=== PATIENT | male | born 1955 | race Two or more races ===

== ENCOUNTER 2023-04-21 17:25 | Inpatient (IN) | payer MEDICAID, OTHER ==
[~2023-04-21] VITALS: Ht 167.6 cm; Wt 78.0 kg
[2023-04-21] MEDS ORDERED: CLONIDINE HCL 0.2 MG TABLET PO ONE (17:30)
[2023-04-21] MEDS ORDERED: CLONIDINE HCL 0.1 MG TABLET ONE (18:12)
[2023-04-21] MEDS ORDERED: CLONIDINE HCL 0.1 MG TABLET PO ONE (18:15)
[2023-04-21 18:25] LABS: BASOPHILS # (AUTO) 0.1 K/UL (0.0-0.2); BASOPHILS % (AUTO) 0.5 % (0.0-2.0); HEMATOCRIT 25.9 % (36.7-47.1); HEMOGLOBIN 8.5 g/dL (12.5-16.3); LYMPHOCYTES # (AUTO) 0.8 K/uL (0.8-4.8); LYMPHOCYTES % (AUTO) 7.1 % (20.5-51.5); MEAN CORPUSCULAR HEMOGLOBIN 28.3 uug (23.8-33.4); MEAN CORPUSCULAR HGB CONC 33 g/dL (32.5-36.3); MEAN CORPUSCULAR VOLUME 86.5 fL (73.0-96.2); MONOCYTES # (AUTO) 1.1 K/uL (0.1-1.30); MONOCYTES % (AUTO) 9.3 % (0.0-11.0); NEUTROPHILS # (AUTO) 9.6 K/uL (1.8-8.9); NEUTROPHILS % (AUTO) 83.1 % (38.5-71.5); PLATELET COUNT (AUTO) 171 K/uL (152-348); RED BLOOD CELL COUNT(AUTO) 2.99 MIL/uL (4.06-5.63); RED CELL DISTRIBUTION WIDTH 15.8 % (12.1-16.2); WHITE BLOOD COUNT (AUTO) 11.6 K/uL (3.6-10.2)
[2023-04-21 18:35] LABS: DIFFERENTIAL COMMENT 1
[2023-04-21 18:43] LABS: CALCIUM 7.8 mg/dL (8.5-10.1); CREATININE 4.9 mg/dL (0.6-1.3); POTASSIUM 3.5 mmol/L (3.5-5.1)
[2023-04-21 18:51] LABS: ALBUMIN 2.4 g/dL (3.4-5.0); BILIRUBIN,DIRECT 0.1 mg/dL (0.0-0.2); BILIRUBIN,TOTAL 0.2 mg/dL (0.2-1.0); TOTAL PROTEIN, SERUM 6.1 g/dL (6.4-8.2)
[2023-04-21] MEDS ORDERED: DEXTROSE 5 %-0.45 % NACL 500 ML IV.SOLN IV ONE (19:00)
[2023-04-21] MEDS ORDERED: IV D5W-0.45% NS 1000 ML BAG IV ONE (19:00)
[2023-04-21] MEDS ORDERED: GENTAMICIN SULFATE OPHT DROP 5 ML BOTTLE OP ONE (20:00)
[2023-04-21] MEDS ORDERED: GENTAMICIN SULFATE OPHT DROP 5 ML BOTTLE ONE (20:29)
[2023-04-21] MEDS ORDERED: HYDR100T27 PO (20:36)
[2023-04-21] MEDS ORDERED: ASPI81TA31 PO (20:36)
[2023-04-21] MEDS ORDERED: GLIP5TAB13 PO (20:36)
[2023-04-21] MEDS ORDERED: FURO20TA4 PO (20:36)
[2023-04-21] MEDS ORDERED: SEVE800T8 PO (20:36)
[2023-04-21] MEDS ORDERED: CHOL2000 PO (20:36)
[2023-04-22] MEDS ORDERED: OCTREOTIDE ACETATE 50 MCG/1 ML ML SQ STA (00:04)
[2023-04-22] MEDS: BLOOD SUGAR DIAGNOSTIC 1 EACH STRIP VI SCH ×3 (00:05→17:59)
[2023-04-22] MEDS ORDERED: OCTREOTIDE ACETATE 100 MCG/1 MLVIAL ONE ×3 (00:08→20:28)
[2023-04-22] MEDS ORDERED: MAGNESIUM HYDROXIDE 30 ML LIQUID UDC PO PRN (00:15)
[2023-04-22] MEDS ORDERED: REMEDY ESSENTIAL ZINC PASTE 113 GM TP PRN (00:15)
[2023-04-22] MEDS ORDERED: ONDANSETRON 4 MG/2 ML VIAL IV PRN (00:15)
[2023-04-22] MEDS ORDERED: DEXTROSE 50% 50 ML DISP.SYRIN ONE (00:51)
[2023-04-22] MEDS ORDERED: DEXTROSE 50% 50 ML DISP.SYRIN IV ONE (01:00)
[2023-04-22] MEDS: IV 10% DEXTROSE 1,000 ML IV PRN ×2 (01:05→15:43)
[2023-04-22] MEDS: PANTOPRAZOLE SODIUM 40 MG TABLET.DR PO SCH (07:49)
[2023-04-22] MEDS ORDERED: hydrALAZINE HCL 50 MG TABLET ONE (13:09)
[2023-04-22 13:13] LABS: BASOPHILS # (AUTO) 0.2 K/UL (0.0-0.2); BASOPHILS % (AUTO) 2.7 % (0.0-2.0); EOSINOPHILS % (AUTO) 0.2 % (0.0-7.0); HEMATOCRIT 24.6 % (36.7-47.1); HEMOGLOBIN 8.1 g/dL (12.5-16.3); LYMPHOCYTES # (AUTO) 0.8 K/uL (0.8-4.8); LYMPHOCYTES % (AUTO) 9.5 % (20.5-51.5); MEAN CORPUSCULAR HEMOGLOBIN 28.3 uug (23.8-33.4); MEAN CORPUSCULAR HGB CONC 33 g/dL (32.5-36.3); MEAN CORPUSCULAR VOLUME 85.9 fL (73.0-96.2); MONOCYTES # (AUTO) 0.9 K/uL (0.1-1.30); NEUTROPHILS # (AUTO) 6.5 K/uL (1.8-8.9); NEUTROPHILS % (AUTO) 76.6 % (38.5-71.5); PLATELET COUNT (AUTO) 162 K/uL (152-348); RED BLOOD CELL COUNT(AUTO) 2.87 MIL/uL (4.06-5.63); RED CELL DISTRIBUTION WIDTH 15.7 % (12.1-16.2); WHITE BLOOD COUNT (AUTO) 8.5 K/uL (3.6-10.2)
[2023-04-22 13:18] LABS: DIFFERENTIAL COMMENT 1
[2023-04-22] MEDS: hydrALAZINE HCL 50 MG TABLET PO SCH ×2 (13:19→17:00)
[2023-04-22 13:26] LABS: ALBUMIN 2.2 g/dL (3.4-5.0); BILIRUBIN,TOTAL 0.2 mg/dL (0.2-1.0); CALCIUM 7.9 mg/dL (8.5-10.1); CREATININE 5.3 mg/dL (0.6-1.3); MAGNESIUM 1.8 mg/dL (1.8-2.4); PHOSPHOROUS 4.5 mg/dL (2.5-4.9); POTASSIUM 4.4 mmol/L (3.5-5.1)
[2023-04-22 13:37] LABS: THYROID STIMULATING HORMONE 1.156 mIU/mL (0.358-3.740)
[2023-04-22] MEDS: OCTREOTIDE ACETATE 50 MCG/1 ML ML SQ SCH ×2 (14:06→21:09)
[2023-04-22] MEDS ORDERED: IV 10% DEXTROSE 1,000 ML IV ONE (15:36)
[2023-04-22] MEDS ORDERED: ASPI81TA31 PO (16:07)
[2023-04-22] MEDS ORDERED: ACETAMINOPHEN 325 MG TABLET ONE (17:52)
[2023-04-22] MEDS: ACETAMINOPHEN 325 MG TABLET PO PRN ×2 (18:00→21:15)
[2023-04-22 18:56] VITALS: BP 200/76; TEMP 100.7
[2023-04-22 20:15] VITALS: BP 188/71; TEMP 99.9; O2SAT 97
[2023-04-22] MEDS ORDERED: hydrALAZINE HCL 50 MG TABLET PO ONE (21:00)
[2023-04-23 00:08] VITALS: BP 128/61; TEMP 98.8
[2023-04-23 04:50] VITALS: BP 137/64; TEMP 98; O2SAT 95
[2023-04-23] MEDS: IV 10% DEXTROSE 1,000 ML IV PRN (04:54)
[2023-04-23] MEDS: BLOOD SUGAR DIAGNOSTIC 1 EACH STRIP VI SCH ×4 (06:00→17:20)
[2023-04-23 06:50] LABS: BASOPHILS % (AUTO) 0.5 % (0.0-2.0); EOSINOPHILS % (AUTO) 0.5 % (0.0-7.0); HEMATOCRIT 25.9 % (36.7-47.1); HEMOGLOBIN 8.7 g/dL (12.5-16.3); LYMPHOCYTES # (AUTO) 1.3 K/uL (0.8-4.8); LYMPHOCYTES % (AUTO) 12.4 % (20.5-51.5); MEAN CORPUSCULAR HEMOGLOBIN 28.9 uug (23.8-33.4); MEAN CORPUSCULAR HGB CONC 34 g/dL (32.5-36.3); MEAN CORPUSCULAR VOLUME 86.3 fL (73.0-96.2); MONOCYTES # (AUTO) 1.2 K/uL (0.1-1.30); MONOCYTES % (AUTO) 11.1 % (0.0-11.0); NEUTROPHILS # (AUTO) 7.8 K/uL (1.8-8.9); NEUTROPHILS % (AUTO) 75.5 % (38.5-71.5); PLATELET COUNT (AUTO) 178 K/uL (152-348); RED CELL DISTRIBUTION WIDTH 15.4 % (12.1-16.2); WHITE BLOOD COUNT (AUTO) 10.4 K/uL (3.6-10.2)
[2023-04-23 07:08] LABS: CALCIUM 7.8 mg/dL (8.5-10.1); CREATININE 5.7 mg/dL (0.6-1.3); MAGNESIUM 1.9 mg/dL (1.8-2.4); PHOSPHOROUS 5.6 mg/dL (2.5-4.9); POTASSIUM 4.2 mmol/L (3.5-5.1)
[2023-04-23 07:14] LABS: DIFFERENTIAL COMMENT 1
[2023-04-23] MEDS: ACETAMINOPHEN 325 MG TABLET PO PRN (09:41)
[2023-04-23] MEDS: ASPIRIN 81 MG TAB.CHEW PO SCH (09:41)
[2023-04-23] MEDS: CHOLECALCIFEROL 1,000 UNIT TABLET PO SCH (09:42)
[2023-04-23] MEDS: hydrALAZINE HCL 50 MG TABLET PO SCH ×3 (09:43→17:19)
[2023-04-23] MEDS: FUROSEMIDE 20 MG TABLET PO SCH (09:47)
[2023-04-23] MEDS: PANTOPRAZOLE SODIUM 40 MG TABLET.DR PO SCH (09:48)
[2023-04-23] MEDS: SEVELAMER CARBONATE 800 MG TABLET PO SCH (09:48)
[2023-04-23 10:23] VITALS: BP 182/48; TEMP 102.7; O2SAT 96
[2023-04-23 12:00] VITALS: BP 142/55; TEMP 99.1; O2SAT 95
[2023-04-23 14:20] LABS: *BILIRUBIN,URIN NEGATIVE (NEGATIVE); *BLOOD, URINE 2+ (NEGATIVE); *CLARITY,URINE CLEAR (CLEAR); *COLOR,URINE YELLOW (YELLOW); *KETONES,URINE NEGATIVE (NEGATIVE); *UROBILINOGEN,URINE 0.2 E.U./dl (NORMAL); LEUKOCYTE ESTERASE ,URINE NEGATIVE (NEGATIVE); NITRITE, URINE NEGATIVE (NEGATIVE)
[2023-04-23 14:21] LABS: *PROTEIN,URINE 3+ (NEGATIVE); UGLUCOSE 1+ (NEGATIVE)
[2023-04-23 14:48] LABS: BACTERIA,URINE FEW /HPF (NONE SEEN); RBC,URINE 20-50 /HPF (0-3); SQUAMOUS EPITHELIAL CELL,UR NONE SEEN /HPF (NONE SEEN); WBC,URINE 0-3 /HPF (0-3)
[2023-04-23 16:00] VITALS: BP 150/67; TEMP 98.4; O2SAT 97
[2023-04-23] MEDS: OCTREOTIDE ACETATE 50 MCG/1 ML ML SQ SCH ×2 (16:16→16:18)
[2023-04-23] MEDS ORDERED: CEFEPIME HCL 1 G in IV DEXTROSE 5% 50 ML IV SCH ×2 (18:00→22:00)
[2023-04-23 20:00] VITALS: BP 168/68; TEMP 98.1; O2SAT 95
[2023-04-24] VITALS: BP 99/54; TEMP 98.8; O2SAT 97
[2023-04-24] MEDS: BLOOD SUGAR DIAGNOSTIC 1 EACH STRIP VI SCH ×5 (00:11→23:47)
[2023-04-24 04:00] VITALS: BP 149/60; TEMP 99; O2SAT 97
[2023-04-24] MEDS: PANTOPRAZOLE SODIUM 40 MG TABLET.DR PO SCH (06:14)
[2023-04-24 07:03] LABS: BASOPHILS % (AUTO) 0.3 % (0.0-2.0); EOSINOPHILS % (AUTO) 0.3 % (0.0-7.0); HEMATOCRIT 22.9 % (36.7-47.1); HEMOGLOBIN 7.7 g/dL (12.5-16.3); LYMPHOCYTES # (AUTO) 1.2 K/uL (0.8-4.8); LYMPHOCYTES % (AUTO) 13.4 % (20.5-51.5); MEAN CORPUSCULAR HEMOGLOBIN 28.6 uug (23.8-33.4); MEAN CORPUSCULAR HGB CONC 34 g/dL (32.5-36.3); MEAN CORPUSCULAR VOLUME 85.2 fL (73.0-96.2); MONOCYTES # (AUTO) 0.9 K/uL (0.1-1.30); MONOCYTES % (AUTO) 9.9 % (0.0-11.0); NEUTROPHILS % (AUTO) 76.1 % (38.5-71.5); PLATELET COUNT (AUTO) 162 K/uL (152-348); RED BLOOD CELL COUNT(AUTO) 2.69 MIL/uL (4.06-5.63); WHITE BLOOD COUNT (AUTO) 9.2 K/uL (3.6-10.2)
[2023-04-24 07:16] LABS: CALCIUM 7.6 mg/dL (8.5-10.1); CREATININE 6.1 mg/dL (0.6-1.3); MAGNESIUM 1.9 mg/dL (1.8-2.4); PHOSPHOROUS 5.7 mg/dL (2.5-4.9); POTASSIUM 4.4 mmol/L (3.5-5.1)
[2023-04-24 07:22] LABS: DIFFERENTIAL COMMENT 1
[2023-04-24] MEDS: ASPIRIN 81 MG TAB.CHEW PO SCH (09:34)
[2023-04-24] MEDS: FUROSEMIDE 20 MG TABLET PO SCH (09:34)
[2023-04-24] MEDS: CHOLECALCIFEROL 1,000 UNIT TABLET PO SCH (09:34)
[2023-04-24] MEDS: SEVELAMER CARBONATE 800 MG TABLET PO SCH (09:34)
[2023-04-24] MEDS: hydrALAZINE HCL 50 MG TABLET PO SCH ×3 (09:42→17:34)
[2023-04-24 12:00] VITALS: BP 135/55; TEMP 97.7; O2SAT 97
[2023-04-24] MEDS ORDERED: AZITHROMYCIN IV 500 MG in IV DEXTROSE 5% 250 ML IV SCH (12:00)
[2023-04-24] MEDS ORDERED: CEFTRIAXONE 1 G in IV DEXTROSE 5% 50 ML IV SCH (13:00)
[2023-04-24 15:57] VITALS: BP 119/65; TEMP 97.6; O2SAT 98
[2023-04-24 20:00] VITALS: BP 155/59; TEMP 98.1; O2SAT 98
[2023-04-25 04:00] VITALS: BP 165/65; TEMP 98.7; O2SAT 96
[2023-04-25] MEDS: PANTOPRAZOLE SODIUM 40 MG TABLET.DR PO SCH (06:07)
[2023-04-25] MEDS: BLOOD SUGAR DIAGNOSTIC 1 EACH STRIP VI SCH (06:10)
[2023-04-25] MEDS: CHOLECALCIFEROL 1,000 UNIT TABLET PO SCH (08:06)
[2023-04-25] MEDS: ASPIRIN 81 MG TAB.CHEW PO SCH (08:06)
[2023-04-25] MEDS: hydrALAZINE HCL 50 MG TABLET PO SCH (08:07)
[2023-04-25] MEDS: SEVELAMER CARBONATE 800 MG TABLET PO SCH (08:07)
[2023-04-25 08:10] VITALS: BP 156/60; TEMP 98.5; O2SAT 95
[2023-04-25 08:42] LABS: BASOPHILS % (AUTO) 0.4 % (0.0-2.0); EOSINOPHILS # (AUTO) 0.1 K/uL (0.0-0.7); EOSINOPHILS % (AUTO) 0.8 % (0.0-7.0); HEMATOCRIT 22.2 % (36.7-47.1); LYMPHOCYTES # (AUTO) 1.4 K/uL (0.8-4.8); LYMPHOCYTES % (AUTO) 18.4 % (20.5-51.5); MEAN CORPUSCULAR HEMOGLOBIN 28.3 uug (23.8-33.4); MEAN CORPUSCULAR HGB CONC 33 g/dL (32.5-36.3); MEAN CORPUSCULAR VOLUME 85.3 fL (73.0-96.2); MONOCYTES # (AUTO) 0.7 K/uL (0.1-1.30); MONOCYTES % (AUTO) 9.5 % (0.0-11.0); NEUTROPHILS # (AUTO) 5.2 K/uL (1.8-8.9); NEUTROPHILS % (AUTO) 70.9 % (38.5-71.5); PLATELET COUNT (AUTO) 162 K/uL (152-348); RED CELL DISTRIBUTION WIDTH 15.3 % (12.1-16.2); WHITE BLOOD COUNT (AUTO) 7.4 K/uL (3.6-10.2)
[2023-04-25 08:43] LABS: DIFFERENTIAL COMMENT 1; HEMOGLOBIN 7.4 g/dL (12.5-16.3)
[2023-04-25 09:03] LABS: CALCIUM 7.8 mg/dL (8.5-10.1); CREATININE 6.8 mg/dL (0.6-1.3)
[2023-04-25] MEDS ORDERED: LEVO500T90 PO (10:09)
[2023-04-25] MEDS ORDERED: hydrALAZINE HCL 10 MG TABLET PO ONE (11:30)
[2023-04-25 11:51] VITALS: BP 181/70; TEMP 97.8; O2SAT 98
== END 2023-04-25 12:26 | disposition home or self-care (01) | DRG 812 ==
LOC: EDBD 17:31 → ER 17:31 → TRANSITION 04-22 12:33 → TELE3 04-22 18:12 → MEDSURG3 04-24 13:12
PROVIDERS: ADMIT Student in an Organized Health Care Education/Training Program; ATTEND Nurse Practitioner Acute Care
DX: T38.3X1A Poisoning by insulin and oral hypoglycemic [antidiabetic] drugs, accidental (unintentional), initial encounter (principal); N17.0 Acute kidney failure with tubular necrosis; J15.69 Pneumonia due to other Gram-negative bacteria; E11.649 Type 2 diabetes mellitus with hypoglycemia without coma; E44.0 Moderate protein-calorie malnutrition; I13.11 Hypertensive heart and chronic kidney disease without heart failure, with stage 5 chronic kidney disease, or end stage renal disease; D63.1 Anemia in chronic kidney disease; E88.09 Other disorders of plasma-protein metabolism, not elsewhere classified; N17.9 Acute kidney failure, unspecified; E11.22 Type 2 diabetes mellitus with diabetic chronic kidney disease; N18.5 Chronic kidney disease, stage 5; Y92.89 Other specified places as the place of occurrence of the external cause; N39.0 Urinary tract infection, site not specified; Z79.84 Long term (current) use of oral hypoglycemic drugs
CPT/HCPCS: 36415; 71045; 76770; 83735; 84100; 84443; 85025; 87040; A4663; C1758; G0378; J0456; J0692; J0696; J2354; J2405; J3490; J7050